=== PATIENT | female | born 1975 | race Caucasian/White ===

== ENCOUNTER 2024-02-13 15:24 | Emergency (ER) | payer MEDICAID ==
[~2024-02-13] VITALS: Ht 160 cm; Wt 52.6 kg
[2024-02-13 16:15] VITALS: BP_SYST 100; PULSE 81; RESP 16; TEMP 98.3; O2SAT 97
[2024-02-13] MEDS ORDERED: IBUP-1969 PO (17:01)
[2024-02-13 17:14] VITALS: BP_SYST 100; PULSE 81; RESP 16; TEMP 98.3; O2SAT 97
== END 2024-02-13 17:13 | disposition home or self-care (01) ==
LOC: SED 15:24
DX: S60.222A Contusion of left hand, initial encounter (principal); Z90.49 Acquired absence of other specified parts of digestive tract; Z79.899 Other long term (current) drug therapy; W22.8XXA Striking against or struck by other objects, initial encounter; Y93.89 Activity, other specified; Y92.89 Other specified places as the place of occurrence of the external cause; Y99.8 Other external cause status
CPT/HCPCS: 99283